=== PATIENT | female | born 1985 | race Asian ===

== ENCOUNTER 2017-12-13 13:54 | Emergency (ER) | payer BC, OTHER ==
[2017-12-13 15:01] VITALS: BP 151/110
[2017-12-13] MEDS ORDERED: Oseltamivir CAP* 75 MG CAP PO ONE (15:08)
--- NOTE | 2017-12-13 15:24 | UC ---
Roula Rodriguez Julia, scribed for aKnnan Reyes MD on 12/13/17 at 1515 . HPI Febrile Illness - HPI Summary HPI Summary: This patient is a 32 year old F presenting to [facility] [place] with a chief complaint of headaches and general malaise since 12/10/17 worsening with a sore throat yesterday.Patient rates the pain 7/10 in severity. No nausea, vomiting, or neck pain. In no acute distress. - History of Current Complaint Chief Complaint: UCGeneralIllness Hx Obtained From: Patient Hx Last Menstrual Period: 12/10/17 Onset/Duration: Started Days Ago Timing: Constant Pain Intensity: 7 Pain Scale Used: 0-10 Numeric Associated Signs and Symptoms: Headache, Sore Throat - Allergy/Home Medications Allergies/Adverse Reactions: Allergies Allergy/AdvReac Type Severity Reaction Status Date / Time No Known Allergies Allergy Verified 12/13/17 14:54 Home Medications: Home Medications amLODIPine TAB* [Norvasc 5 mg TAB*] 5 mg PO DAILY 12/13/17 [History Confirmed ] PMH/Surg Hx/FS Hx/Imm Hx Cardiovascular History: Hypertension - Surgical History Surgical History: None - Social History Alcohol Use: None Substance Use Type: None Smoking Status (MU): Never Smoked Tobacco Review of Systems ENT: Sore Throat Neurological: Headache All Other Systems Reviewed And Are Negative: Yes Physical Exam Triage Information Reviewed: Yes Vital Signs: Initial Vital Signs Temp 98.4 F 12/13/17 14:55 Pulse 102 12/13/17 14:55 Resp 20 12/13/17 14:55 BP 151/110 12/13/17 14:55 Pulse Ox 100 12/13/17 14:55 Vital Signs Reviewed: Yes Eye Exam: Normal ENT Exam: Normal Dental Exam: Normal Neck exam: Normal Neck: Positive: 1 Respiratory Exam: Normal Cardiovascular Exam: Normal Abdominal Exam: Normal Musculoskeletal Exam: Normal Neurological Exam: Normal Psychological Exam: Normal Skin Exam: Normal - Additional Comments Appearance: Well-appearing, Well-nourished Skin: Warm, moist mucous membrans Respiratory: Clear to auscultation Cardiovascular: Normal S1, S2. No murmurs. Normal distal pulses in tibial and radial bilaterally. General: No acute distress Neck: full ROM Course/Dx - Course Assessment/Plan: in no acute distress, feels well, started empirically on tamiflu, agrees to and understnads dc isntructions - Diagnoses Clinic Provider Diagnoses: influenza Discharge - Discharge Plan Condition: Stable Disposition: HOME Prescriptions: Oseltamivir CAP* [Tamiflu CAP*] 75 mg PO BID #10 cap Patient Education Materials: Influenza (ED) Forms: *Work Release Referrals: Sonny Flores MD [Primary Care Provider] - Additional Instructions: PLEASE MAKE AN APPOINTMENT TO BE SEEN BY YOUR PRIMARY CARE DOCTOR WITHIN 1 WEEK The documentation as recorded by the Roula li Julia accurately reflects the service I personally performed and the decisions made by me, Kannan Reyes MD.
== END 2017-12-13 15:20 | disposition home or self-care (01) ==
LOC: UCEAST 13:54
DX: J11.1 Influenza due to unidentified influenza virus with other respiratory manifestations (principal); I10 Essential (primary) hypertension
CPT/HCPCS: 99202; A9270-GY; G0463

== ENCOUNTER 2024-11-30 14:47 | Inpatient (IN) ==
[2024-11-30] MEDS ORDERED: Buffered Lidocaine 1% SYRIN 1 ml INTRADERM ONE (15:19)
[2024-11-30] MEDS ORDERED: Lidocaine 1% VIAL 10 MG/ML 30 ML VIAL INJ PRN (15:19)
[2024-11-30] MEDS ORDERED: Nalbuphine 10 MG/ML 1 ML VIAL IV PRN (15:19)
[2024-11-30] MEDS: Lactated Ringers 1000 ml BAG 1,000 ML IV ONE ×2 (15:28→20:06)
[2024-11-30] MEDS ORDERED: OXYTOCIN IV ONE (15:30)
[2024-11-30] MEDS ORDERED: SODIUM CHLORIDE IV ONE (15:30)
[2024-11-30 15:41] LABS: ABS Eosinophils 0.1 10^3/uL (0.0-0.5); ABS Lymphocytes 1.3 10^3/uL (1.0-4.8); ABS Monocytes 0.9 10^3/uL (0.0-0.9); ABS Neutrophils 12.8 10^3/uL (1.5-7.6); Eosinophil % 0.8 %; Hematocrit 30.9 % (35-45); Hemoglobin 10.5 g/dL (11.5-14.3); Lymphocyte % 8.6 %; Mean Corpuscular Hemoglobin 30.9 pg (27-33); Mean Corpuscular Hgb Conc 33.8 g/dL (31-36); Mean Corpuscular Volume 91.4 fL (80-97); Mean Platelet Volume 7.7 fL (7.5-11.2); Platelet Count 306 10^3/uL (150-450); Red Blood Count 3.38 10^6/uL (3.63-4.92); Red Cell Distribution Width 14.9 % (12-17); White Blood Count 15.1 10^3/uL (3.8-11.8)
[2024-11-30 16:14] LABS: Albumin 3.5 g/dL (3.5-5.7); Albumin/Globulin Ratio 1.1 (1-3); Calcium 9.3 mg/dL (8.6-10.3); Creatinine, Serum 1.07 mg/dL (0.51-0.95); Globulin 3.1 g/dL (2-4); Potassium 4.1 mmol/L (3.5-5.0); Total Bilirubin 0.3 mg/dL (0.2-1.0); Total Protein 6.6 g/dL (6.4-8.9); eGFR CKD-EPI 68.2 (>60)
[2024-11-30 17:16] LABS: Urine Benzodiazepine Screen None Detected (None Detect); Urine Cannabinoids Screen None Detected (None Detect); Urine Opiates Screen None Detected (None Detect)
[2024-11-30] MEDS: Lactated Ringers 1000 ml BAG 1,000 ML IV SCH (18:00)
[2024-11-30] MEDS: Prochlorperazine 5 mg/ml 2 ml VIAL (10 mg) IV PRN (22:10)
[2024-11-30] MEDS: fentaNYL 100 mcg/2 ml 50 MCG/ML VIAL IV SLOW PU ONE (22:22)
[2024-12-01] MEDS ORDERED: Dibucaine 1% OINT 28.35 GM TUBE PR PRN (00:07)
[2024-12-01] MEDS ORDERED: Glycerin ADULT 2.4 gm SUPP PR PRN (00:07)
[2024-12-01] MEDS ORDERED: Witch Hazel PAD JAR TOPICAL PRN (00:07)
[2024-12-01 06:45] LABS: ABS Basophils 0.1 10^3/uL (0.0-0.1); ABS Eosinophils 0.1 10^3/uL (0.0-0.5); ABS Lymphocytes 2.1 10^3/uL (1.0-4.8); ABS Monocytes 1.1 10^3/uL (0.0-0.9); ABS Neutrophils 12.8 10^3/uL (1.5-7.6); Eosinophil % 0.8 %; Hematocrit 25.2 % (35-45); Hemoglobin 8.5 g/dL (11.5-14.3); Lymphocyte % 13.1 %; Mean Corpuscular Hgb Conc 33.5 g/dL (31-36); Mean Corpuscular Volume 92.5 fL (80-97); Mean Platelet Volume 7.8 fL (7.5-11.2); Platelet Count 252 10^3/uL (150-450); Red Blood Count 2.73 10^6/uL (3.63-4.92); Red Cell Distribution Width 15.1 % (12-17); White Blood Count 16.2 10^3/uL (3.8-11.8)
[2024-12-01] MEDS: Measles, Mumps,Rubella VACC 0.5 ML/VIAL SUBCUT ONE (07:56)
[2024-12-01 10:07] VITALS: BP 119/63
[2024-12-01 14:12] LABS: Candida Species NAA Negative (Negative)
[2024-12-01 14:28] LABS: Mycoplasma genitalium NAA Negative (Negative)
[2024-12-01 15:32] LABS: Chlamydia trachomatis NAA Negative (Negative); Neisseria gonorrhoeae (GC) NAA Negative (Negative)
== END 2024-12-01 12:15 | disposition home or self-care (01) | DRG 779 ==
LOC: MCHOBOUT 14:47 → MCHOB 16:25
PROVIDERS: ADMIT Obstetrics & Gynecology; ATTEND Obstetrics & Gynecology